=== PATIENT | female | born 1985 | race American Indian/Alaskan Native ===

== ENCOUNTER 2017-05-02 08:38 | Day surgery (SDC) | payer OTHER ==
--- NOTE | 2017-05-02 09:26 | Short Stay Summary ---
Short Stay Documentation Date of service: 05/02/17 Narrative H&P: C/O: JAREK 3 31-year-old is here for repeat Pap. She has JAREK-3 on colposcopic biopsies. Gynhx: Regular cycles, no STDs Medhx/Sughx:None Obhx:# 1 (03/2007) ALL:Clindamycin Fshx: Single, no smoking Maternal grandmother stomach cancer Exam was unremarkable A: JAREK 3 P: -We discussed risks associated with above. Also discussed risk of positive margins after procedure -Questions answered she signed consent -Proceed to OR once available - History Past Medical History: No medical history Past Surgical History: No surgical history Social history: single, full code, no smoking, no alcohol abuse, no prescription drug abuse, no IV drug use - Allergies and Medications Current Medications: Allergies amoxicillin Allergy (Verified 04/26/17 14:37) Rash Home Medications Medication Instructions Recorded Confirmed Last Taken Type No Known Home Medications [No 04/26/17 04/26/17 Unknown History Reported Home Medications] - Physical exam General appearance: no acute distress, well-nourished Lungs: Clear to auscultation, Normal air movement Heart: Regular rate, Normal S1, Normal S2 Female Genitourinary: normal Extremities: no ischemia - Brief post op/procedure progress note Date of procedure: 05/02/17 Pre-op diagnosis: JAREK 3 Post-op diagnosis: same Procedure: LEEP excision Anesthesia: GETA Findings: Normal appearing cervix Surgeon: BAILEY GONZALEZ Estimated blood loss: none Pathology: list (LEEP cervical specimen tagged at 12:00, ECC) Specimen disposition: to lab Condition: stable - Hospital course Hospital course: Uncomplicated course in PACU - Disposition Condition at discharge: Good - Discharge Diagnoses (1) S/P LEEP (loop electrosurgical excision procedure) Status: Acute (2) 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
[2017-05-02] MEDS ORDERED: ZOFRAN IV PRN (09:27)
[2017-05-02] MEDS ORDERED: DILAUDID IV PRN (09:27)
[2017-05-02] MEDS ORDERED: LACTATED RINGERS 1,000 ML IV SCH (09:27)
[2017-05-02] MEDS ORDERED: VERSED IV NR (09:27)
[2017-05-02] MEDS ORDERED: PEPCID PO NR (09:27)
[2017-05-02] MEDS ORDERED: XYLOCAINE MPF 2% ONE (09:35)
[2017-05-02] MEDS ORDERED: SUBLIMAZE ONE (09:35)
[2017-05-02] MEDS ORDERED: DIPRIVAN 10 MG/ML IV ONE (09:35)
[2017-05-02] MEDS ORDERED: MONSEL'S TP ONE ×2 (09:40→10:15)
[2017-05-02] MEDS ORDERED: LUGOL'S SOLUTION 5% TP ONE (09:41)
[2017-05-02] MEDS ORDERED: ACETIC ACID 3% SOLN TP ONE (09:41)
[2017-05-02] MEDS ORDERED: SILVER NITRATE TP ONE (09:41)
--- NOTE | 2017-05-02 09:44 | Anesthesia Consultation ---
Anesthesia Consult and Med Hx - Airway Anesthetic Teeth Evaluation: Good ROM Head & Neck: Adequate Mental/Hyoid Distance: Adequate Mallampati Class: Class II Intubation Access Assessment: Probably Good - Pulmonary Exam CTA: Yes - Cardiac Exam Cardiac Exam: RRR - Pre-Operative Health Status ASA Pre-Surgery Classification: ASA1 Proposed Anesthetic Plan: General (no previous GA) - Central Nervous System Hx Psychiatric Problems: No - Other Systems Hx Alcohol Use: Yes (occas) Hx Cancer: No
--- NOTE | 2017-05-02 09:44 | Anesthesia Day of Surgery ---
Anesthesia Day of Surgery - Day of Surgery Patient Examined: Yes Patient H&P Reviewed: Yes Patient is NPO: Yes
[2017-05-02] MEDS ORDERED: DECADRON ONE (10:25)
[2017-05-02] MEDS ORDERED: ZOFRAN ONE (10:25)
--- NOTE | 2017-05-02 10:29 | Operative Report ---
Operative Report Operative Report: DATE: 04/01/2017 PREOPERATIVE DIAGNOSIS: JAREK-3 POSTOP DIAGNOSIS: Same NAME OF PROCEDURE: LEEP SURGEON: BAILEY GONZALEZ MD [facility] LOCATION MANAGER: None ANESTHESIA: LMA EBL: None PATHOLOGY SPECIMEN: LEEP specimen tagged at 12:00, ECC URINE OUTPUT: 100 mL prior to procedure FINDINGS: Closed os, no obvious lesions, prominent ectropion DESCRIPTION OF PROCEDURE: Procedure in detail patient taken to the operating room where she was prepped and draped in sterile fashion placed in dorsolithotomy position. A speculum was placed in the vagina and single-tooth was used to grab the anterior lip of the uterus, LEEP cautery device was then used to excise the SCJ junction; specimen was tagged at 12:00. Using Bovie cautery, rest of the ectropion was cauterized and then hemostasis was obtained. Using a sharp curet, ECC was obtained. All instruments were then withdrawn from the patient's vagina. She tolerated the procedure well and instrument counts were correct 2 she is transferred to PACU in stable condition thank you
[2017-05-02] MEDS ORDERED: TYLENOL PO PRN (10:32)
[2017-05-02] MEDS ORDERED: MOTRIN PO PRN (10:32)
[2017-05-02] MEDS ORDERED: NORCO 5/325 PO PRN (10:32)
--- NOTE | 2017-05-02 12:20 | Post Anesthesia Evaluation ---
- Post Anesthesia Evaluation Patient Participated: Yes Airway Patent: Yes Stable Respiratory Function: Yes Nausea/Vomiting: No Temp > 96.8F: Yes Pain Manageable: Yes Adequeate Hydration: Yes Anesthesia Complications: No Block Receding Appropriately: Not Applicable Patient on Ventilator: No
[2017-05-02 13:05] VITALS: BP 123/86
== END 2017-05-02 12:30 | disposition home or self-care (01) ==
LOC: OR 08:38
PROVIDERS: ATTEND Obstetrics & Gynecology Gynecology
DX: N87.1 Moderate cervical dysplasia (principal); Z88.1 Allergy status to other antibiotic agents; Z72.89 Other problems related to lifestyle
CPT/HCPCS: 57522; 81025; 88305; 88307; J1100; J2250; J2405; J2704; J3010; J7120